=== PATIENT | female | born 1995 | race Caucasian/White ===

== ENCOUNTER 2021-11-03 08:09 | Emergency (ER) | payer OTHER ==
[2021-11-03] MEDS ORDERED: SODIUM CHLORIDE 0.9% 500 ML 500 ML IV STA (08:24)
[2021-11-03 08:25] VITALS: RESP 16; TEMP 98.7
--- NOTE | 2021-11-03 08:27 | ED ---
General Adult HPI <Lisa Nguyen - Last Filed: 11/03/21 10:46> - General Source: patient, EMS, RN notes reviewed, old records reviewed Mode of arrival: EMS Limitations: no limitations <Don Amaral - Last Filed: 11/03/21 12:23> - General Chief complaint: Seizure Stated complaint: seizure Time Seen by Provider: 11/03/21 08:12 - History of Present Illness Initial comments: 26-year-old female presenting status post seizure. Patient is currently in rehab for opiate abuse. She's been there for for 5 days. She denies any issues with alcohol. She has previous seizure history. She had about a 4 minute seizure prior to arrival. Upon arrival she is alert and oriented. She had a chin injury with laceration. No other complaints. She does state that she is currently this was found on routine urinalysis at the rehabilitation Center. She does not know how far along she is. (Don Amaral) - Related Data Previous Rx's Medication Instructions Recorded Pnv No.95/Ferrous Fum/Folic AC 1 each PO DAILY #90 tablet 11/03/21 [ Multivitamin Tablet] Allergies Allergy/AdvReac Type Severity Reaction Status Date / Time No Known Allergies Allergy Verified 11/03/21 08:27 Review of Systems ROS Other: All systems not noted in ROS Statement are negative. <Lisa Nguyen - Last Filed: 11/03/21 10:46> ROS Other: All systems not noted in ROS Statement are negative. <Don Amaral - Last Filed: 11/03/21 12:23> ROS Statement: Those systems with pertinent positive or pertinent negative responses have been documented in the HPI. Past Medical History Past Medical History: Seizure Disorder History of Any Multi-Drug Resistant Organisms: None Reported Past Surgical History: No Surgical Hx Reported Smoking Status: Never smoker Past Alcohol Use History: None Reported Past Drug Use History: Marijuana, Opiates <Don Amaral - Last Filed: 11/03/21 12:23> General Exam Limitations: no limitations General appearance: alert, in no apparent distress Head exam: Present: atraumatic, normocephalic Eye exam: Present: normal appearance, PERRL ENT exam: Present: other (3 cm laceration midline inferior chin) Neck exam: Present: normal inspection. Absent: tenderness, meningismus Respiratory exam: Present: normal lung sounds bilaterally. Absent: respiratory distress, wheezes Cardiovascular Exam: Present: regular rate, normal rhythm GI/Abdominal exam: Present: soft. Absent: distended, tenderness Extremities exam: Present: normal inspection, normal capillary refill. Absent: pedal edema Neurological exam: Present: alert, oriented X3, CN II-XII intact. Absent: motor sensory deficit Psychiatric exam: Present: normal affect, normal mood Skin exam: Present: warm, dry. Absent: cyanosis, diaphoretic <Don Amaral - Last Filed: 11/03/21 12:23> Course Vital Signs 11/03/21 08:19 Temperature 98.7 F Pulse Rate 94 Respiratory 16 Rate Blood Pressure 116/79 O2 Sat by Pulse 100 Oximetry EKG Findings - EKG Comments: EKG Findings:: EKG: Sinus rhythm rate of 68, AL interval 143, QRS duration 90, QTC 45, no ST segment elevation. <Don Amaral - Last Filed: 11/03/21 12:23> Procedures - Laceration Laceration #1 Consent Obtained: verbal consent Indication: laceration Site: face Size (cm): 3 Description: linear, clean Depth: simple, single layer Anesthetic Used: lidocaine 1% Anesthesia Technique: local infiltration Amount (mls): 5 Pre-repair: wound explored, irrigated extensively Size of Sutures: 5-0 Number of Sutures: 7 Technique: simple, interrupted Patient Tolerated Procedure: well, no complications <Lisa Nguyen - Last Filed: 11/03/21 10:46> Medical Decision Making - Lab Data Result diagrams: 11/03/21 08:37 11/03/21 08:37 <Lisa Nguyen - Last Filed: 11/03/21 10:46> - Lab Data Result diagrams: 11/03/21 08:37 11/03/21 08:37 <Don Amaral - Last Filed: 11/03/21 12:23> - Medical Decision Making 26-year-old female history of seizure disorder presenting as postseizure from the rehabilitation Center for opiate abuse. Patient alert and oriented without focal findings. She has small laceration of the chin which was repaired in the emergency department. Additionally the patient states she was recently noted to be with urine test. This was confirmed with beta hCG and ultrasound which showed an early gestational sac in the uterus. Patient's given strict return parameters as well as obstetric follow-up. She should follow with her primary care physician regarding his seizure. She's given seizure precautions. (Don Amaral) - Lab Data Lab Results 11/03/21 11/03/21 Range/Units 08:37 08:37 WBC 8.6 (3.8-10.6) k/uL RBC 3.78 L (3.80-5.40) m/uL Hgb 12.5 (11.4-16.0) gm/dL Hct 37.7 (34.0-46.0) % MCV 99.7 (80.0-100.0) fL MCH 33.0 (25.0-35.0) pg MCHC 33.2 (31.0-37.0) g/dL RDW 12.9 (11.5-15.5) % Plt Count 300 (150-450) k/uL MPV 7.0 Neutrophils % 86 % Lymphocytes % 9 % Monocytes % 4 % Eosinophils % 0 % Basophils % 0 % Neutrophils # 7.5 (1.3-7.7) k/uL Lymphocytes # 0.7 L (1.0-4.8) k/uL Monocytes # 0.3 (0-1.0) k/uL Eosinophils # 0.0 (0-0.7) k/uL Basophils # 0.0 (0-0.2) k/uL Sodium 141 (137-145) mmol/L Potassium 4.4 (3.5-5.1) mmol/L Chloride 109 H (98-107) mmol/L Carbon Dioxide 20 L (22-30) mmol/L Anion Gap 12 mmol/L BUN 5 L (7-17) mg/dL Creatinine 0.54 (0.52-1.04) mg/dL Est GFR (CKD-EPI)AfAm >90 (>60 ml/min/1.73 sqM) Est GFR (CKD-EPI)NonAf >90 (>60 ml/min/1.73 sqM) Glucose 134 H (74-99) mg/dL Calcium 9.1 (8.4-10.2) mg/dL Magnesium 2.1 (1.6-2.3) mg/dL Total Bilirubin 0.6 (0.2-1.3) mg/dL AST 24 (14-36) U/L ALT 17 (4-34) U/L Alkaline Phosphatase 64 (38-126) U/L Total Protein 7.8 (6.3-8.2) g/dL Albumin 4.3 (3.5-5.0) g/dL HCG, Quant 2377.4 mIU/mL Disposition <Lisa Nguyen - Last Filed: 11/03/21 10:46> Is patient prescribed a controlled substance at d/c from ED?: No Time of Disposition: 12:22 <Don Amaral Cynthia - Last Filed: 11/03/21 12:23> Clinical Impression: Generalized seizure, Disposition: HOME SELF-CARE Instructions (If sedation given, give patient instructions): Seizure/Epilepsy Discharge Instructions & Follow-Up, Recurrent Seizures in Adults (ED), (ED), Laceration (ED), Care For Your Stitches (DC) Additional Instructions: Please follow with her primary care physician as well as obstetrics. Also return for suture removal in 5-7 days. Prescriptions: Pnv No.95/Ferrous Fum/Folic AC [ Multivitamin Tablet] 1 each PO DAILY #90 tablet Referrals: None,Stated [Primary Care Provider] - 1-2 days Vesna Vides MD [STAFF PHYSICIAN] - 1-2 days Allen Diaz MD [REFERRING] - 1-2 days
[2021-11-03] MEDS ORDERED: LIDOCAINE 1% INJ 10MG/ML (5 ML VIAL-PF) SQ ONE (08:32)
[2021-11-03 08:59] LABS: Basophils % (A) 0 %; Eosinophils % (A) 0 %; HCT 37.7 % (34.0-46.0); HGB 12.5 gm/dL (11.4-16.0); Lymphocytes # (A) 0.7 k/uL (1.0-4.8); Lymphocytes % (A) 9 %; MCHC 33.2 g/dL (31.0-37.0); MCV 99.7 fL (80.0-100.0); Monocytes # (A) 0.3 k/uL (0-1.0); Monocytes % (A) 4 %; Neutrophils # (A) 7.5 k/uL (1.3-7.7); Neutrophils % (A) 86 %; Platelet Count 300 k/uL (150-450); RBC 3.78 m/uL (3.80-5.40); RDW 12.9 % (11.5-15.5); WBC 8.6 k/uL (3.8-10.6)
[2021-11-03 09:32] LABS: ALT 17 U/L (4-34); AST 24 U/L (14-36); African American GFR (CKD) >90 (>60 ml/min/1.73 sqM); Albumin 4.3 g/dL (3.5-5.0); Alkaline Phosphatase 64 U/L (38-126); Anion Gap 12 mmol/L; Blood Urea Nitrogen 5 mg/dL (7-17); Calcium 9.1 mg/dL (8.4-10.2); Carbon Dioxide 20 mmol/L (22-30); Chloride 109 mmol/L (98-107); Glucose 134 mg/dL (74-99); Magnesium 2.1 mg/dL (1.6-2.3); Non-African American GFR(CKD) >90 (>60 ml/min/1.73 sqM); Potassium 4.4 mmol/L (3.5-5.1); Sodium 141 mmol/L (137-145); Total Bilirubin 0.6 mg/dL (0.2-1.3); Total Protein 7.8 g/dL (6.3-8.2)
[2021-11-03 09:47] LABS: HCG,Quantitative Serum 2377.4 mIU/mL
--- NOTE | 2021-11-03 12:15 | US ---
EXAMINATION TYPE: Transabdominal DATE OF EXAM: 11/03/2021 10:28 AM COMPARISON: NONE CLINICAL HISTORY: ab pain. Ab pain per order. G4: Hx 1 stillborn, 2 living children. EXAM PERFORMED: Transvaginal (TV) and Transabdominal (TA). For better visibility of gestational sac and possible free fluid in pelvis. EXAM MEASUREMENTS: GESTATIONAL AGE / DATING Physician Established: Not yet established Dates by LMP: Unknown per patient. Dates by First Scan: This is first scan Dates by Current Scan for: Gestational sac seen only at this time: measures out of range. MATERNAL ANATOMY Uterus: 9.2 x 5.3 x 4.7 cm. Anteverted. Right Ovary: 3.6 x 2.4 x 1.7 cm. Left Ovary: 4.4 x 3.2 x 3.1 cm. Appears enlarged (volume >21 ml)- arterial and venous flow noted. Are a of mixed echogenicity and peripheral vascularity seen: 3.1 x 3.0 x 2.2 cm. Post CDS / Adnexa: Fluid seen in CDS: 1.2 x 1.7 x 1.1 cm. Presence of free fluid: Free fluid seen in CDS. Presence of corpus luteal cyst: Possible within left ovary, mixed area seen as mentioned above. Presence of subchorionic bleed: Possible: hypoechoic area seen inferior to the gestational sac: 0.4 x 0.3 x 0.1 cm. GESTATION / SURVEY MSD: 0.46 cm. (Measures out of range) IUP: Gestational sac seen only at this time. Date of LMP: Unknown IMPRESSION: 1. Small intrauterine gestational sac may be present. A yolk sac and pole are not identified. T his is too early for accurate measurement. Differential diagnosis should include spontaneous and ectopic in addition to early . 2. Free fluid within the pelvis. 3. Correlation with beta-hCG and follow-up is recommended.
[2021-11-03 13:43] VITALS: BP 122/74; PULSE 78
== END 2021-11-03 13:43 | disposition home or self-care (01) ==
LOC: EC 08:09
DX: O9A.211 Injury, poisoning and certain other consequences of external causes complicating pregnancy, first trimester (principal); O99.350 Diseases of the nervous system complicating pregnancy, unspecified trimester; S01.81XA Laceration without foreign body of other part of head, initial encounter; G40.909 Epilepsy, unspecified, not intractable, without status epilepticus; Z3A.00 Weeks of gestation of pregnancy not specified
CPT/HCPCS: 36415; 80053; 83735; 85025; 84702; 76801; 76817; 99284; 12011; J2001